=== PATIENT | female | born 1965 | race Two or more races ===

== ENCOUNTER 2022-03-15 09:34 | Emergency (ER) | payer OTHER ==
[~2022-03-15] VITALS: Ht 160 cm; Wt 102.0 kg
[2022-03-15 09:42] VITALS: BP 150/82
[2022-03-15] MEDS ORDERED: IBUP800T27 PO (11:08)
[2022-03-15] MEDS ORDERED: AZIT500T66 PO (11:08)
== END 2022-03-15 11:12 | disposition home or self-care (01) ==
LOC: ER 09:34
DX: J03.90 Acute tonsillitis, unspecified (principal); Z79.1 Long term (current) use of non-steroidal anti-inflammatories (NSAID); Z79.2 Long term (current) use of antibiotics

== ENCOUNTER 2025-03-06 20:25 | Emergency (ER) | payer MEDICAID ==
[~2025-03-06] VITALS: Ht 160 cm; Wt 100.0 kg
[2025-03-06 20:25] VITALS: BP 139/75; PULSE 71; RESP 18; TEMP 98.4; O2SAT 94
[~2025-03-06 20:25] MED LIST: AZIT500T66 PO; HYDR-4902 PO; IBUP-1454 PO; IBUP-1456 PO
[2025-03-06] MEDS ORDERED: ACE3T PO (22:36)
[2025-03-06] MEDS ORDERED: CYCL-837 PO (22:36)
--- NOTE | 2025-03-06 22:36 | ED.PDOC ---
Musculoskeletal HPI Comments 60-year-old female presents to ER with complaints of right leg pain x 2 days. Patient with PMH of sciatica states she started experiencing pain centralized to right buttock 2 days ago. She rates her current pain a 8/10 centralized to right buttock with radiation towards right lower lumbar region and down posterior right leg. Notes she has been taking meloxicam for her symptoms without relief and is following up with an orthopedic spine doctor with regards to her symptoms on Thursday of this week. Patient presents to [facility], ambulatory, in no distress and does report numbness/tingling down right leg. States she has had similar symptoms in the past related to sciatica. Denies fever, body aches, ch ills, night sweats, trauma/falls, extremity weakness, abdominal/pelvic pain, calf pain, chest pain, changes in urination/bm or any further symptoms/complaints Chief Complaint: Lower Extremity Time Seen by MD: 20:48 Primary Care Provider: NONE Reviewed Notes: Nurses Notes, Medications, Allergies Allergies: Coded Allergies: NO KNOWN ALLERGIES (Unverified , 03/15/22) Home Meds Active Scripts Acetaminophen W/ Codeine (Tylenol W/Cod #3) 1 Tab Tb, 1 TAB PO Q6HPRN, #10 TAB 0 Refills Prov:MELISA GIRARD 03/06/25 Cyclobenzaprine Hcl (Cyclobenzaprine Hcl) 5 Mg Tab, 1 TAB PO QHSP, #14 TAB 0 Refills Prov:MELISA GIRARD 03/06/25 Hydrocodone-Acetaminophen (Hydrocodone Bitartrate/AC 5-325 mg) 1 Tab Tab, 1 TAB PO Q6HP PRN, #20 TAB Prov:ALBANIA EDGAR PAC 12/15/22 Ibuprofen (Ibuprofen) 600 Mg Tab, 1 TAB PO TID, #30 TAB Prov:ALBANIA EDGAR PAC 12/15/22 Ibuprofen (Ibuprofen) 800 Mg Tab, 800 MG PO Q8HP PRN, #30 TAB Prov:JEREMY BO 03/15/22 Azithromycin (Azithromycin) 500 Mg Tab, 500 MG PO DAILY for 5 Days, #5 TAB Prov:JEREMY BO 03/15/22 Information Source: Patient Mode of Arrival: Wheelchair Past Medical History Past Medical History (Other): Sciatica Surgical History: Denies all surgeries TRAINING AND DEVELOPMENT PROFESSIONAL History: No Pertinent TRAINING AND DEVELOPMENT PROFESSIONAL History Family History Family History: Unknown Social History Smoker: Non-Smoker Alcohol: Denies ETOH Use Drugs: Denies Drug Use Lives In: Home Constitutional: denies: chills, diaphoresis, fatigue, fever, malaise, sweats, weakness, others EENTM: denies: blurred vision, double vision, ear bleeding, ear discharge, ear drainage, ear pain, ear ringing, eye pain, eye redness, hearing loss, mouth pain, mouth swelling, nasal discharge, nose bleeding, nose congestion, nose pain, photophobia, tearing, throat pain, throat swelling, voice changes, others Respiratory: denies: cough, hemoptysis, orthopnea, SOB at rest, shortness of b reath, SOB with excertion, stridor, wheezing, others Cardiovascular: denies: chest pain, dizzy spells, diaphoresis, Dyspnea on exertion, edema, irregular heart beat, left arm pain, lightheadedness, palpitations, PND, syncope, others Gastrointestinal: denies: abdomen distended, abdominal pain, blood streaked bowels, constipated, diarrhea, dysphagia, difficulty swallowing, hematemesis, melena, nausea, poor appetite, poor fluid intake, rectal bleeding, rectal pain, vomiting, others Genitourinary: denies: abnormal vagina bleeding, burning, dyspareunia, dysuria, flank pain, frequency, hematuria, incontinence, pain, , vagina discharge, urgency, others Neurological: reports: others (As stated in HPI) Musculoskeletal: reports: others (As stated in HPI) Integumetry: denies: bruises, change in color, change in hair/nails, dryness, laceration, lesions, lumps, rash, wounds, others Allergic/Immunocompromised: denies: Difficulty Healing, Frequent Infections, Hives, Itching, others Hematologic/Lymphatic: denies: anemia, blood clots, easy bleeding, easy bruising, swollen glands, others Endocrine: denies: excessive hunger, excessive sweating, excessive thirst, excessive urination, flushing, intolerance to cold, intolerance to heat, unexplained weight gain, unexplained weight loss, others Psychiatric: denies: anxiety, bipolar disorder, depression, hopeless, panic disorder, schizophrenia, sleepless, suicidal, others Physical Exam General Appearance: No Apparent Distress, Obese HEENT: PERRL/EOMI Neck: Full Range of Motion, Non-Tender, Normal Respiratory: Chest Non-Tender, Lungs Clear, No Accessory Muscle Use, No Respiratory Distress, Normal Breath Sounds Cardiovascular: No Murmur, No Gallop, Regular Rate/Rhythm Breast Exam: Deferred Gastrointestinal: Non Tender, No Pulsatile Mass, Soft Genitalia: Deferred Pelvic: Deferred Rectal: Deferred Extremities: No calf tenderness, Normal capillary refill, Normal range of motion, No pedal edema Musculoskeletal : Extremity Location: Back (TTP centralized to right buttock and to right lower lumbar paraspinals noted. No bony tenderness to spine appreciated. Steady gait noted) Neurologic: Alert, No Motor Deficits, Normal Affect, Normal Mood, No Sensory Deficits Cerebellar Function: Normal Reflexes: Normal Skin: Dry, Normal Color, Warm Peripheral Pulses: 2+ femoral (R), 2+ femoral (L), 2+ dorsalis pedis (R), 2+ dorsalis pedis (L), 2+ Radial (R), 2+ Radial (L), 2+ Brachial (R), 2+ Brachial (L) Lymphatic: No Adenopathy Was a procedure done? Was a procedure done?: No Sedation Sedation?: No Differential Diagnosis EXT Differential Diagnosis: Fracture, Dislocation, Neurovascular injury X-Ray, Labs, Meds, VS Vital Signs Date Time Temp Pulse Resp B/P (MAP) Pulse Ox O2 Delivery O2 Flow Rate FiO2 03/06/25 20:25 98.4 71 18 139/75 94 98.4 Toradol 60 mg IM ordered Patient neurovascularly intact and reported improvement in symptoms prior to discharge Advised on rest/no strenuous activity Advised to follow up with PCP in 1-2 days Patient verbalized understanding and agreeable with current plan of care Advised to return to ER immediately if symptoms worsen Time of 1ST Reevaluation: 22:14 Reevaluation 1ST: N/A Patient Education/Counseling: Diagnosis, Treatment, Prognosis, Need For Follow Up Family Education/Counseling: No Family Present Departure 1 Departure Time of Disposition: 22:34 Impression: Primary Impression: Sciatica, right side Disposition: HOME / SELF CARE / HOMELESS Condition: Stable e-Prescriptions Acetaminophen W/ Codeine (Tylenol W/Cod #3) 1 Tab Tb 1 TAB PO Q6HPRN, #10 TAB 0 Refills Prov: MELISA GIRARD 03/06/25 Cyclobenzaprine Hcl (Cyclobenzaprine Hcl) 5 Mg Tab 1 TAB PO QHSP, #14 TAB 0 Refills Prov: MELISA GIRARD 03/06/25 Discharged With: Friend Critical Care Note Critical Care Time?: No Stability Stability form required: No Heart Score Heart Score: Heart Score Response (Comments) Value History N/A 0 EKG N/A 0 Age N/A 0 Risk Factors N/A 0 Troponin N/A 0 Total 0 MELISA GIRARD Mar 06, 2025 22:36
[2025-03-06] MEDS: KETOROLAC TROMETH 60MG/2ML VIAL IM ONE (22:43)
== END 2025-03-06 23:02 | disposition home or self-care (01) ==
LOC: ER 20:29
DX: M54.41 Lumbago with sciatica, right side (principal); Z79.899 Other long term (current) drug therapy
CPT/HCPCS: 96372; 99283; J1885